=== PATIENT | male | born 1960 | race Caucasian/White ===

== ENCOUNTER 2024-10-30 14:44 | Day surgery (SDC) | payer OTHER, SELFPAY ==
[2024-10-30 13:44] VITALS: BMI 27.6
[2024-10-30 13:49] VITALS: BP 123/77; BMI 27.6
[2024-10-30 14:00] LABS: Hematocrit 44.3 % (39.0-52.0); Hemoglobin 15.3 g/dL (13.0-18.0); Mean Corp Hgb Conc. 34.5 g/dL (33.0-37.0); Mean Corpuscular Volume 89.9 fL (80.0-94.0); Platelet Count 198 10^3/uL (130-400); Red Cell Dist. Width 13.9 % (11.5-14.5)
[2024-10-30 14:23] LABS: ALT (SGPT) 17 U/L (0-50); AST (SGOT) 24 U/L (17-59); Albumin 4.2 g/dl (3.5-5.0); Alkaline Phosphatase 75 U/L (38-126); Blood Urea Nitrogen 17 mg/dl (9-20); Calcium 9.3 mg/dl (8.4-10.2); Carbon Dioxide 27 mmol/L (22-30); Chloride 104 mmol/L (98-107); Estimated Creatinine Clearance 72 ml/min; Glucose 90 mg/dl (70-99); Potassium 4.0 mmol/L (3.5-5.1); Sodium 135 mmol/L (135-145); Total Protein 6.8 g/dl (6.3-8.2); eGFR > 60.00
[2024-10-30 15:51] VITALS: BP 123/77
[2024-10-30 16:00] VITALS: BP 125/75
[2024-10-30] MEDS: DETROL LA 4 MG PO (16:05)
[2024-10-30 16:10] VITALS: BP 132/78
[2024-10-30 16:27] VITALS: BP 131/77
[2024-10-30 16:42] VITALS: BP 131/84
== END 2024-10-30 16:45 | disposition home or self-care (01) ==
LOC: SDS 14:44
PROVIDERS: ATTENDING PHYSICIAN Surgery; FAMILY PHYSICIAN Internal Medicine
DX: N20.1 Calculus of ureter (principal)
CPT/HCPCS: 52356; 74018; 76000; 80053; 85027; 93005; C1894; C2617

== ENCOUNTER 2024-11-17 17:43 | Emergency (ER) | payer SELFPAY ==
[2024-11-17 17:45] VITALS: BP 138/90
[2024-11-17 18:15] VITALS: BMI 27.4
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
[2024-11-17 18:19] VITALS: BP 132/92
[2024-11-17] MEDS: TORADOL 30 MG IM (18:24)
[2024-11-17] MEDS: ADACEL 0.5 ML IM (18:27)
[2024-11-17 19:30] VITALS: BP 128/64
== END 2024-11-17 20:19 | disposition home or self-care (01) ==
LOC: EMR 17:43
PROVIDERS: EMERGENCY PHYSICIAN Emergency Medicine; FAMILY PHYSICIAN Internal Medicine
DX: S39.012A Strain of muscle, fascia and tendon of lower back, initial encounter (principal); S40.212A Abrasion of left shoulder, initial encounter; S40.811A Abrasion of right upper arm, initial encounter; S80.212A Abrasion, left knee, initial encounter; V29.888A Rider (driver) (passenger) of other motorcycle injured in other specified transport accidents, initial encounter; Z23 Encounter for immunization
CPT/HCPCS: 96372; 90471; 99284; 71046; 72072; 73030; 90715